=== PATIENT | female | born 1985 | race Caucasian/White ===

== ENCOUNTER → 2021-10-04 14:51 | Outpatient (BNVA) | payer MEDICARE, MEDICAID, SELFPAY | PROVIDERS: PCP Family Medicine Adult Medicine; Visit Provider Nurse Practitioner Family | DX: R56.9 Unspecified convulsions (principal); G43.909 Migraine, unspecified, not intractable, without status migrainosus; Z79.899 Other long term (current) drug therapy | CPT/HCPCS: 99212 ==

== ENCOUNTER → 2021-12-09 12:48 | Outpatient (BNVA) | payer MEDICARE, MEDICAID, SELFPAY | PROVIDERS: PCP Family Medicine Adult Medicine; Visit Provider Nurse Practitioner Family | DX: R56.9 Unspecified convulsions (principal); G43.009 Migraine without aura, not intractable, without status migrainosus; F41.1 Generalized anxiety disorder | CPT/HCPCS: 99212 ==

== ENCOUNTER → 2022-03-24 14:26 | Outpatient (BNVA) | payer MEDICARE, MEDICAID, SELFPAY | PROVIDERS: Visit Provider Nurse Practitioner Family | DX: R56.9 Unspecified convulsions (principal); G43.009 Migraine without aura, not intractable, without status migrainosus; F41.1 Generalized anxiety disorder | CPT/HCPCS: 99212 ==

== ENCOUNTER 2023-04-04 14:43 | Outpatient (AMB) | payer MEDICARE, MEDICAID, SELFPAY ==
--- NOTE | 2023-04-04 14:46 | A.OFFVIS_ITS ---
Intake Vital Signs 04/04/23 14:51 Height 5 ft Weight 138 lb BMI 26.9 BP 122/84 Blood Pressure Location Rt brachial Position Sitting Pulse 117 H Pulse Source Pulse Oximeter Pulse Oximetry (%) 99 Oxygen Delivery Method Room Air Intake Visit Reasons: F/u - CONF Intake Note: Patient presents for follow up. My silent seizure are still there,my full blown epileptic are more controlled and my migraines are worst and more often. Allergies No Known Allergies Allergy (Verified 04/04/23 14:53) Medication List - Last Reconciled 04/04/23 by JIMBO Sadler alprazolam 0.25 mg orally 1 tab 30 minutes prior to labs/medical appointments, may repeat x's 1; 30 days buspirone 5 mg PO BID citalopram 20 mg PO DAILY citalopram 10 mg PO DAILY clonazepam 0.5 mg PO DAILY fluticasone propionate 50 mcg/actuation 2 sprays intranasal DAILY gabapentin 300 mg PO BID loratadine 10 mg PO DAILY PRN magnesium oxide 400 mg PO DAILY 30 days metoclopramide HCl 5 mg PO Q4H PRN 90 days olanzapine 2.5 mg PO BEDTIME oxcarbazepine 300 mg PO QAM 30 days oxcarbazepine 600 mg PO BID 90 days riboflavin (vitamin B2) 400 mg PO DAILY 30 days rimegepant (Nurtec ODT) 75 mg PO Q OTHER DAY 32 days sumatriptan succinate 100 mg PO Q2H PRN 2 doses topiramate 25 - 50 mg (1 - 2 x 25 mg) PO BEDTIME 90 days HPI HPI Comments History of Present Illness Details 37-yr-old female presents for f/u visit. Pt denies any significant interval medical changes. Pt reports she is having spacing out seizures a/w mild shoulder/body jerking, w here she can hear what is going around her but cannot respond- this lasts seconds- and occur 5-6 x's per month. She has not had any full convulsive seizures- may feel that a seizure is coming on- however her friend/family can help her to relax and deep breathe, and is able to prevent it form becoming a full seizure. She is worried that her new watch has been showing elevated HR up to the 130s, e jordi when she is just sitting and inactive. She has had 2 a-fib notifications w/ HR in the 60s. Denies usual palpitations, chest pain, SOB, swelling. Sometimes may feel hot. She has been feeling more left lower occipital/neck pressure, which can move up/down the head. A/w photophobia, phonophobia, N/V, sometimes allodynia- touch can cause shooting pains, activity intolerance. Ice caps help. Sumatriptan helps only if she catches the DOYLE at the 1st sign. Topiramate 25mg qhs. Oxcarbazapine 600mg qam and 900mg qhs, Off of Gabapentin- did not feel it was very helpful. She has not had Nurtec ODT- is not being refilled. PFSH Medical History Depression Sleep difficulties Surgical History Hx of removal of cyst Family History Mother Diabetes Hypertension Thyroid disease Kidney disease Father COPD (chronic obstructive pulmonary disease) Social History Household Members: Family Household Members Other:: father, fiance Alcohol intake: current Alcohol intake frequency: holidays/special occasions only Patient Tobacco Use Status: Current everyday Tobacco user Substance Use Type: Marijuana Review of Systems Const All systems reviewed & are unremarkable except as noted in HPI and below Physical Exam Vital Signs: Last Vital Signs Pulse 117 H 04/04/23 14:51 BP 122/84 04/04/23 14:51 Pulse Ox 99 04/04/23 14:51 Oxygen Delivery Method Room Air 04/04/23 14:51 BMI result Body Mass Index 26.9 Const General: cooperative and no acute distress Orientation/consciousness: patient oriented x3 HEENT Head: Yes normocephalic Resp Effort & Inspection: normal respiratory effort and able to speak in complete sentences Neuro General: patient oriented x3, gait normal and CN's II-XI intact bilaterally Cognition (Neuro): normal cognition Motor exam (neuro): 5/5 motor strength present throughout Psych Appearance: grossly normal Mental Status: mental status grossly normal Speech and movement: Normal speech and movement present Affect: normal affect Attitude: cooperative Thought process: Normal thought process present Thought content: Normal thought content present Insight: Good insight present (Psych) Judgement: Good judgement present (Psych) Assessment & Plan Assessment & Plan (1) Tachycardia: Code(s): R00.0 - Tachycardia, unspecified (2) Atrial fib/flutter, transient: Code(s): I48.91 - Unspecified atrial fibrillation; I48.92 - Unspecified atrial flutter (3) Migraine without aura: Code(s): G43.009 - Migraine without aura, not intractable, without status migrainosus (4) Seizure: Code(s): R56.9 - Unspecified convulsions Plan Pt is advised to undergo 72 hr holter to assess episodes of resting tachycradia and heart rate monitor showing episodes of a-fib. For seiure: Continue Trileptal 600mg qam and 900mg qhs. Pt does not drive. ? For migraine: Resume Nurtec ODT 75mg qod for migraine prevention, as this has been very effective. Continue Topiramate 25mg qhs. Continue Riboflavin and Magnesium. Continue prn Sumatriptan. Continue prn Metoclopramide. Contraindications: Amitriptyline d/t seizure d/o. BBs d/t risk for hypotension ? f/u in 4 months or sooner prn new/worsening s/s Orders: Orders ECG 3 day holter monitor 04/04/23 I48.91 - Unspecified atrial fibrillation, I48.92 - Unspecified atrial flutter, R00.0 - Tachycardia, unspecified Medications: Changed From rimegepant (Nurtec ODT) 75 mg PO Q OTHER DAY 32 days 16 tabs 6RF for migraine prevention G43.009 - Migraine without aura, not intractable, without status migrainosus To rimegepant (Nurtec ODT) 75 mg PO Q OTHER DAY 30 days 15 tabs 6RF for migraine prevention G43.009 - Migraine without aura, not intractable, without status migrainosus From oxcarbazepine 300 mg PO QAM 30 days 30 tabs 3RF To oxcarbazepine 300 mg PO QAM 90 days 90 tabs 1RF From magnesium oxide 400 mg PO DAILY 30 days 30 tabs 4RF To magnesium oxide 400 mg PO DAILY 90 days 90 tabs 1RF Refilled sumatriptan succinate Max of 2 tablets per day or 4 tabs per week 100 mg PO Q2H PRN 12 tabs 6RF migraine headache oxcarbazepine 600 mg PO BID 90 days 180 tabs 1RF Coding Level of Care Code Est Pt Level 4 (29405) Diagnoses Tachycardia R00.0 Atrial fib/flutter, transient I48.91; I48.92 Migraine without aura G43.009 Seizure R56.9
[2023-04-04 14:51] VITALS: BP 122/84; PULSE 117; O2SAT 99; BMI 26.9
== END 2023-04-04 16:03 | disposition home or self-care (01) ==
PROVIDERS: Visit Provider Nurse Practitioner Family
DX: R00.0 Tachycardia, unspecified (principal); I48.91 Unspecified atrial fibrillation; I48.92 Unspecified atrial flutter; G43.009 Migraine without aura, not intractable, without status migrainosus; R56.9 Unspecified convulsions
CPT/HCPCS: 99214

== ENCOUNTER → 2023-04-04 14:43 | Outpatient (BNVA) | payer MEDICARE, MEDICAID, SELFPAY | PROVIDERS: Visit Provider Nurse Practitioner Family | DX: R00.0 Tachycardia, unspecified (principal); I48.91 Unspecified atrial fibrillation; I48.92 Unspecified atrial flutter; G43.009 Migraine without aura, not intractable, without status migrainosus; R56.9 Unspecified convulsions; Z79.899 Other long term (current) drug therapy | CPT/HCPCS: 99212 ==

== ENCOUNTER → 2023-04-17 14:16 | Outpatient (REF) | payer MEDICARE, MEDICAID, SELFPAY ==
--- NOTE | 2023-04-17 14:20 | HM_ITS ---
Conclusion: 1. Patient was monitored for total period of 2 days 2. Baseline was normal sinus rhythm with average heart rate of 82 beats per minute 3. No significant arrhythmias or pauses noted 4. Patient reported 10 events most of which were pounding heart correlating with sinus tachycardia MTDD
== END ==
LOC: HO.CARD 14:16
PROVIDERS: Visit Provider Nurse Practitioner Family
DX: R00.0 Tachycardia, unspecified (principal); I48.91 Unspecified atrial fibrillation; I48.92 Unspecified atrial flutter
CPT/HCPCS: 93242

== ENCOUNTER → 2023-04-17 14:20 | Outpatient (BNV) | payer MEDICARE, MEDICAID, SELFPAY | PROVIDERS: Visit Provider Internal Medicine Cardiovascular Disease | DX: R00.0 Tachycardia, unspecified (principal) | CPT/HCPCS: 93244 ==

== ENCOUNTER 2023-05-11 12:54 | Outpatient (AMB) | payer MEDICARE, MEDICAID, SELFPAY ==
[2023-05-11 12:56] VITALS: BP 120/80; PULSE 92; BMI 26.7
--- NOTE | 2023-05-11 12:56 | MHC.OFFVIS ---
Intake Vital Signs 05/11/23 12:56 Height 5 ft Weight 136 lb 10.986 oz BMI 26.7 BP 120/80 Blood Pressure Location Lt brachial Position Sitting Pulse 92 Intake Visit Reasons: APPLICATIONS SUPPORT SPECIALIST/ Carol Kennedy/tachycardia Intake Note: New patient dx tachycardia c/o high heart rate with little activity for the past few months watch said afib a few times had holter Cellophane Wrapping Examiner Required: No Corporate Quality Manager: Corporate Quality Manager Present Accompanied by: Significant Other Allergies No Known Allergies Allergy (Verified 04/04/23 14:53) Medication List - Last Reconciled 05/11/23 by Micheal Chiu MD alprazolam 0.25 mg orally 1 tab 30 minutes prior to labs/medical appointments, july repeat x's 1; 30 days buspirone 10 - 20 mg PO BID PRN citalopram 20 mg PO DAILY citalopram 10 mg PO DAILY clonazepam 0.5 mg PO DAILY fluticasone propionate 50 mcg/actuation 2 sprays intranasal DAILY loratadine 10 mg PO DAILY PRN magnesium oxide 400 mg PO DAILY 90 days metoclopramide HCl 5 mg PO Q4H PRN olanzapine 2.5 mg PO BEDTIME oxcarbazepine 300 mg PO QAM 90 days oxcarbazepine 1 tab qam and 1.5 tabs qhs orally .; 90 days rimegepant (Nurtec ODT) 75 mg PO Q OTHER DAY 30 days sumatriptan succinate 100 mg PO Q2H PRN 30 days topiramate 25 - 50 mg (1 - 2 x 25 mg) PO BEDTIME 90 days HPI HPI Comments History of Present Illness Details Lebron was referred to me for assessment and management of tachycardia. She has a pleasant 37-year-old female with prior mental health issues with PTSD, depression, anxiety disorder. She has on a lot of psychoactive medication prescribed by psychiatrist. Over the last few years she is gained some weight and she decided to she wants to start exercising so she bought herself a smart watch with heart monitor. Her she started noticing that this watch was telling her that heart rate was elevated especially when she would get up to do something in the morning leg get a cup of coffee. She then got concerned about this. Some of the episodes the watch told her that she might be in atrial fibrillation. She subsequently underwent a Holter monitor which actually shows average heart rate of 82 beats per minute throughout the monitoring which is within acceptable limits. However she had 10 reported events without any symptoms correlating with sinus tachycardia. There was no evidence of atrial fibrillation on the Holter monitor. Patient denies any symptoms related to it. Denies any lightheadedness, syncope. Denies any rapid palpitations. Denies any chest pain or shortness of breath. She does not drink a lot of water or use a lot of salt in her diet. She also has a lot of caffeine. She denies any other stimulant use or alcohol use. [facility] Medical History Sleep difficulties Depression Surgical History Hx of removal of cyst Family History Mother Diabetes Hypertension Thyroid disease Kidney disease Father COPD (chronic obstructive pulmonary disease) Social History Household Members: Family Household Members Other:: father, fiance Alcohol intake: current Alcohol intake frequency: holidays/special occasions only Patient Tobacco Use Status: Current everyday Tobacco user Substance Use Type: Marijuana Review of Systems Const Denies chills, Denies fatigue, Denies fever(s), Denies frequent falls, Denies weakness, Denies weight gain and Denies weight loss ENT Denies dizziness Card Denies chest pain, Denies leg edema, Denies lightheadedness, Denies palpitations, Denies dyspnea, Denies dyspnea on exertion, Denies orthopnea and Denies other (loss of consciousness) Resp Denies cough, Denies dyspnea and Denies dyspnea on exertion GI Denies hematochezia and Denies change in stool character Musc Denies abnormal gait, Denies muscle weakness, Denies numbness, Denies radiating pain into limb and Denies tingling Neuro Denies abnormal gait, Denies dizziness, Denies frequent falls, Denies numbness, Denies tingling and Denies weakness Endo Denies fatigue and Denies palpitations Physical Exam Vital Signs: Last Vital Signs Pulse 92 05/11/23 12:56 BP 120/80 05/11/23 12:56 BMI result Body Mass Index 26.7 Const General: cooperative, comfortable, no acute distress, alert, awake and anxious Nutritional Appearance: overweight Orientation/consciousness: patient oriented x3 Limitations: no limitations HEENT Head: Yes normocephalic and Yes atraumatic Neck Neck: Yes trachea midline, Yes supple and Yes no JVD Resp Effort & Inspection: normal respiratory effort Auscultation: clear to auscultation bilaterally and diminished lung sounds Cardio Jugular venous distension: no JVD Palpation: normal PMI Rate: regular rate Rhythm: regular rhythm Heart sounds: S1 normal heart sound present, S2 normal heart sound present, no click, no gallops, no murmurs and no rubs GI Auscultation: normal bowel sounds Skin General skin exam: no rashes or lesions noted Neuro General: patient oriented x3 and no focal motor deficits Extrem General: Yes no clubbing, cyanosis or edema Office Procedures EKG Details: EKG shows normal sinus rhythm with normal EKG with normal axis and normal intervals [id number], Complete Assessment & Plan Assessment & Plan (1) Sinus tachycardia seen on air sampling and monitoring: Code(s): R00.0 - Tachycardia, unspecified Plan: Patient with episodes of sinus tachycardia as detected by a watch and noted on the Holter monitor as well which appear to be more orthostatic in nature. This could be because of mild dysautonomia caused by her psychoactive medication which she requires for her mental health. She also has relative hypovolemia given that she has not a lot of oral fluid intake and lot of caffeine intake that might be contributing to her tachycardia. I have advised her to increase her water as well as salt intake. Various ways of doing this was discussed. Orthostatic precautions were discussed. If she persists with persistent elevated heart rate despite significantly increasing water and salt intake will proceed with head-up tilt-table testing. Nature of orthostatic tachycardia was discussed with her. No pharmacotherapy is recommended. I have advised if she is interested in investing in a smart phone based EKG device for her concern of atrial flutter/fibrillation although there is no clear evidence by Holter monitoring. She will think about it. Have advised her to decrease her stimulant use especially caffeine use. Eventually participating in regular aerobic activity will also improve her vagal tone and help with management of inappropriate sinus tachycardia. Will follow up in the clinic in 3 months time, sooner p.r.n.. Thank you for allowing me to partake in her care Orders: Orders CA echo transthoracic complete Today R00.0 - Tachycardia, unspecified Medications: Changed From metoclopramide HCl max 2 tabs per day 5 mg PO Q4H 90 days PRN 30 tabs 1RF migriane To metoclopramide HCl max 2 tabs per day 5 mg PO Q4H PRN migriane Coding Level of Care Code New Pt Level 3 (57522) Diagnoses Sinus tachycardia seen on air sampling and monitoring R00.0 CPT Codes EKG - CPT: 19139-[id number], Complete ([id number])
== END 2023-05-11 13:29 | disposition home or self-care (01) ==
PROVIDERS: Visit Provider Internal Medicine Cardiovascular Disease
DX: R00.0 Tachycardia, unspecified (principal)
CPT/HCPCS: 93010; 99213

== ENCOUNTER → 2023-05-11 12:54 | Outpatient (BNVA) | payer MEDICARE, MEDICAID, SELFPAY | PROVIDERS: Visit Provider Internal Medicine Cardiovascular Disease | DX: R00.0 Tachycardia, unspecified (principal) | CPT/HCPCS: 93005; 99212 ==

== ENCOUNTER → 2023-06-05 15:00 | Outpatient (REF) | payer MEDICARE, MEDICAID, SELFPAY ==
--- NOTE | 2023-06-05 15:02 | CA_ITS ---
Transthoracic Echocardiogram Patient (Last, First, Middle): Lebron Lobato, Gender: Female Date of : 1985 Age: 37 Procedure Date: 06/05/2023 Procedure Type: Transthoracic Echocardiogram Location: OP Height: 152.4 cm Weight: 62.14 kg BSA: 1.59 m2 Heart Rate: bpm BP: 110 / 70 mmHg Permaculture Designer: MANSI Referring MD: Micheal Chiu MD Stock Selector: Micheal Chiu MD Symptoms: R00.0 - Tachycardia, unspecified Study Quality: Adequate ECG Rhythm: Tachycardia Conclusions: - Normal study Findings Left Ventricle Normal left ventricular size, thickness, and systolic function. The visually estimated ejection fraction is between 60-65%. Diastolic function is normal for age. Peak GLS is -17.2%, borderline low. Right Ventricle Normal right ventricular cavity size and systolic function. Atria Both atria are normal in size. There is no evidence of interatrial shunt. Aortic Valve Normal aortic valve structure and function. There is no aortic valve stenosis. There is no aortic valve regurgitation. Mitral Valve Normal mitral valve structure and function. There is trace mitral valve regurgitation. There is no mitral valve stenosis. Pulmonic Valve The pulmonic valve is likely normal. Tricuspid Valve Normal tricuspid valve structure. There is trace tricuspid valve regurgitation. The right ventricular systolic pressure is normal. The right ventricular systolic pressure is 18 mmHg. Normal right atrial pressure. There is no evidence of pulmonary hypertension. Great Vessels All visible segments of the aorta are normal in size. The pulmonary artery was not well visualized. Venous The inferior vena cava is normal in size and collapses greater than 50% with inspiration. Pericardium/Pleural There is no evidence of pericardial effusion. Prior Study Comparison No prior study available for comparison. Measurements 2D Linear Measurements IVSd: 0.65 0.6-0.9/0.6-1.0 cm LVIDd: 4.75 3.9-5.3/4.2-5.9 cm LVIDd Index: 2.99 2.4-3.2/2.2-3.1 cm/m2 LVIDs: 2.83 2.0-3.6 cm LVPWd: 0.79 0.7-1.1 cm LA Diam: 2.60 2.7-3.8/3.0-4.0 cm LAIDs Index: 1.64 1.5-2.3 cm/m2 LV Mass: 135.20 67-162/88-224 g LV Mass Index: 85.03 43-95/49-115 g/m2 LVOT Diam: 2.00 3.0+(-)1.3 cm 2D Systolic Function EF 4C: 58.70 >55% EF 2C: 65.70 >55% EF BiP: 61.90 >55% Mitral Valve MV Pk E: 0.84 MV PK A: 0.93 MV Decel Time: 161.00 E/A: 0.90 E'Lateral: 13.10 E'Medial: 11.30 E/E' Med: 7.50 E/E' Lat: 6.40 PHT: 47.00 MVA PHT: 4.68 Decel Gonzales: 5.24 Aortic Valve AoV Pk Ritesh: 1.55 AoV Mn Ritesh: 1.09 AoV VTI: 0.31 AoV Pk Grad: 10.00 Aov Mn Grad: 5.00 MEREDITH Cont.VTI: 2.20 LVOT LVOT Pk Ritesh: 1.09 LVOT Mn Ritesh: 0.77 LVOT VTI: 0.21 LVOT Pk Grad: 5.00 LVOT Mn Grad: 3.00 LVOT Diam: 2.00 LVOT Area: 3.14 Diastolic Function MV Pk E: 0.84 MV Pk A: 0.93 E/A: 0.90 E'Medial: 11.30 E/E' Med: 7.50 E' Laterial: 13.10 E/E' Lat: 6.40 Right Ventricle TAPSE (mm): 23.60 TVS' Ritesh: 13.20 Tricuspid Valve TR Pk Ritesh: 1.96 TR Pk Grad: 15.00 RA Press: 3.00 RVSP: 18.00 Great Vessels Aorta Sinus of Valsalva: 2.90 2.0-3.5 cm Ao Asc: 2.80 2.1-3.4 cm Pulmonary Valve PV Pk Ritesh: 1.10 Peak PV Grad: 5.00 Updated in Other Vendor System with Status of Final Micheal Chiu MD electronically signed on 06/06/2023 12:45:14 PM with status of Final
== END ==
LOC: HO.CARD 15:00
PROVIDERS: Visit Provider Internal Medicine Cardiovascular Disease
DX: R00.0 Tachycardia, unspecified (principal)
CPT/HCPCS: 93306; 93356

== ENCOUNTER → 2023-06-05 15:02 | Outpatient (BNV) | payer MEDICARE, MEDICAID, SELFPAY | PROVIDERS: Visit Provider Internal Medicine Cardiovascular Disease | DX: R00.0 Tachycardia, unspecified (principal); I34.0 Nonrheumatic mitral (valve) insufficiency | CPT/HCPCS: 93306; 93356 ==

== ENCOUNTER 2023-08-01 14:34 | Outpatient (AMB) | payer MEDICARE, MEDICAID, SELFPAY ==
--- NOTE | 2023-08-01 15:24 | MHC.OFFVIS ---
Vital Signs 08/01/23 15:25 Height 5 ft Weight 143 lb BMI 27.9 BP 122/78 Blood Pressure Location Rt brachial Position Sitting Pulse 88 Pulse Source Pulse Oximeter Pulse Oximetry (%) 99 Oxygen Delivery Method Room Air Intake Visit Reasons: 4 mo f/u-LVM Intake Note: Patient has no issues for her seizures today. Allergies No Known Allergies Allergy (Verified 08/01/23 15:27) Medication List - Last Reconciled 08/01/23 by JIMBO Sadler alprazolam 0.25 mg orally 1 tab 30 minutes prior to labs/medical appointments, may repeat x's 1; 30 days buspirone 10 - 20 mg PO BID PRN citalopram 20 mg PO DAILY citalopram 10 mg PO DAILY clonazepam 0.5 mg PO DAILY fluticasone propionate 50 mcg/actuation 2 sprays intranasal DAILY loratadine 10 mg PO DAILY PRN magnesium oxide 400 mg PO DAILY 90 days metoclopramide HCl 5 mg PO Q4H PRN olanzapine 2.5 mg PO BEDTIME oxcarbazepine 1 tab qam and 1.5 tabs qhs orally .; 90 days oxcarbazepine 300 mg PO QAM 90 days rimegepant (Nurtec ODT) 75 mg PO Q OTHER DAY 30 days sumatriptan succinate 100 mg PO Q2H PRN 30 days topiramate 25 - 50 mg (1 - 2 x 25 mg) PO BEDTIME 90 days HPI Comments Details: 37-yr-old female presents for f/u visit, accompanied by her partner. Since last visit, pt had holter monitor which showed- 10 events most of which were pounding heart correlating with sinus tachycardia. Pt was thus referred to cardiology- who encouraged pt to increase salt and fluids. She tries to take increased fluids but notes it is hard to do. Today. she reports her smart watch is alerting her that her nocturnal heart rate can be be low- high 30s, 40s, 50s, 60s. She is worried to go to sleep. Does endorse snoring, excessive daytime sleepiness. She is also worried to start Vraylar that her psychiatrist suggested she try in place of Olanzapine- in hopes this would lessen her weight gain. Pt also notes she is planning to have an IVF consult to discuss family planning- would like our opinion on this. Pt reports she is having spacing out seizures a/w mild shoulder/body jerking, where she can hear what is going around her but cannot respond- this lasts seconds. per month. She has not had any full convulsive seizures. She states she has been taking Oxcarbazapine as 600+300mg (900mg) bid- for last few months. She is worried that her new watch has been showing elevated HR up to the 130s, even when she is just sitting and inactive. She has had 2 a-fib notifications w/ HR in the 60s. Denies usual palpitations, chest pain, SOB, swelling. Sometimes may feel hot. Pt report Nurtec ODT is much more effective than Sumatriptan for treating her acute migraine. She is having 4-5 breakthrough migraine days per month. Baseline headache characteristics: left lower occipital/neck pressure, which can move up/down the head. A/w photophobia, phonophobia, N/V, sometimes allodynia- touch can cause shooting pains, activity intolerance. Ice caps help. [facility] Medical History Sleep difficulties Depression Surgical History Hx of removal of cyst Family History Mother Diabetes Hypertension Thyroid disease Kidney disease Father COPD (chronic obstructive pulmonary disease) Social History Household Members: Family Household Members Other:: father, fiance Alcohol intake: current Alcohol intake frequency: holidays/special occasions only Patient Tobacco Use Status: Current everyday Tobacco user Substance Use Type: Marijuana Physical Exam Vital Signs: Last Vital Signs Pulse 88 08/01/23 15:25 BP 122/78 08/01/23 15:25 Pulse Ox 99 08/01/23 15:25 Oxygen Delivery Method Room Air 08/01/23 15:25 BMI result Body Mass Index 27.9 Const General: cooperative and no acute distress Orientation/consciousness: patient oriented x3 Resp Effort & Inspection: normal respiratory effort and able to speak in complete sentences Neuro General: patient oriented x3 Cranial nerves: Yes CN's II-XII intact bilaterally Cognition (Neuro): normal cognition Psych Appearance: grossly normal Mental Status: mental status grossly normal Speech and movement: Normal speech and movement present Affect: normal affect Attitude: cooperative Assessment & Plan Assessment & Plan (1) Snoring: Code(s): R06.83 - Snoring Category: Medical (2) Sleep difficulties: Code(s): G47.9 - Sleep disorder, unspecified Category: Medical (3) Excessive daytime sleepiness: Code(s): G47.19 - Other hypersomnia Category: Medical (4) Migraine without aura: Code(s): G43.009 - Migraine without aura, not intractable, without status migrainosus Category: Medical (5) Seizure: Code(s): R56.9 - Unspecified convulsions Category: Medical (6) GIA (generalized anxiety disorder): Code(s): F41.1 - Generalized anxiety disorder Category: Medical Plan Pt is advised to undergo HST to assess for sleep apnea, nocturnal bradycardia. 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 She is not ready to do labs today. Discussed that Oxcarbazepine can reduce serum sodium levels, which can cause CV and Neuro s/s- lightheadedness, heart rate changes, MS changes, etc. Pt advised to continue to increase fluids. Trial adding Thermotab- 1 tab bid. She may start Vraylar. Follow-up w/ cardiology as scheduled. For desire for : Discussed that seizure d/o does not preclude pt from becoming Once pt establishes care w/ IVF clinic, we should consider stopping Topiramate d/t risk for cleft lip. She would need a high lift operator consult as well. Start Folic acid 1mg qd. For seizure: May continue Trileptal 900mg BID. Pt does not drive. ? For migraine: Continue Nurtec ODT 75mg qod for migraine prevention, as pt has good clinical effect from use. Continue Topiramate 25mg qhs. Continue Riboflavin and Magnesium. Continue prn Sumatriptan. Continue prn Metoclopramide. Contraindications: Amitriptyline d/t seizure d/o. BBs d/t risk for hypotension ? f/u in 4 months or sooner prn new/worsening s/s Orders: Orders RT home sleep study Today G47.19 - Other hypersomnia, G47.9 - Sleep disorder, unspecified, R06.83 - Snoring Medications: New sod.chlorid-potassium chloride 287-180-15 mg (Thermotabs) 1 tab PO BID-TID PRN 30 tabs 3RF fatigue sod.chlorid-potassium chloride 287-180-15 mg (Thermotabs) 1 tab PO BID 30 days 60 tabs 3RF E87.1 - Hypo-osmolality and hyponatremia folic acid 1 mg PO DAILY 30 days 30 tabs 6RF Changed From oxcarbazepine 1 tab qam and 1.5 tabs qhs orally .; 90 days 225 tabs 1RF To oxcarbazepine 600 mg orally po bid (take w/ 300mg tab to total 900mg) 600 mg PO BID 90 days 180 tabs 1RF From oxcarbazepine 300 mg PO QAM 90 days 90 tabs 1RF To oxcarbazepine take w/ 600mg tab bid to total 900mg 300 mg PO BID 90 days 180 tabs 1RF Coding Level of Care Code Est Pt Level 4 (19106) Diagnoses Snoring R06.83 Sleep difficulties G47.9 Excessive daytime sleepiness G47.19 Migraine without aura G43.009 Seizure R56.9 GIA (generalized anxiety disorder) F41.1
[2023-08-01 15:25] VITALS: BP 122/78; PULSE 88; O2SAT 99; BMI 27.9
== END 2023-08-01 16:15 | disposition home or self-care (01) ==
PROVIDERS: Visit Provider Nurse Practitioner Family
DX: R06.83 Snoring (principal); G47.9 Sleep disorder, unspecified; G47.19 Other hypersomnia; G43.009 Migraine without aura, not intractable, without status migrainosus; R56.9 Unspecified convulsions; F41.1 Generalized anxiety disorder
CPT/HCPCS: 99214

== ENCOUNTER → 2023-08-01 14:34 | Outpatient (BNVA) | payer MEDICARE, MEDICAID, SELFPAY | PROVIDERS: Visit Provider Nurse Practitioner Family | DX: R56.9 Unspecified convulsions (principal); R06.83 Snoring; G47.9 Sleep disorder, unspecified; F41.1 Generalized anxiety disorder; G47.19 Other hypersomnia; G43.009 Migraine without aura, not intractable, without status migrainosus | CPT/HCPCS: 99212 ==

== ENCOUNTER 2023-08-14 13:24 | Outpatient (AMB) | payer MEDICARE, MEDICAID, SELFPAY ==
--- NOTE | 2023-08-14 13:47 | MHC.OFFVIS ---
Vital Signs 08/14/23 13:48 Height 5 ft Weight 143 lb 4.807 oz BMI 28.0 BP 110/64 Blood Pressure Location Lt brachial Position Sitting Pulse 92 Intake Visit Reasons: 3 mth fu after echo Intake Note: 3 month follow-up after echo has had hr in the 40's on watch when sleeping Waste Minimization Technician Required: No Allergies No Known Allergies Allergy (Verified 08/01/23 15:27) Medication List - Last Reconciled 08/14/23 by Micheal Chiu MD buspirone 10 - 20 mg PO BID PRN cariprazine (Vraylar) 1.5 mg PO DAILY clonazepam 0.5 mg PO DAILY fluticasone propionate 50 mcg/actuation 2 sprays intranasal DAILY folic acid 1 mg PO DAILY 30 days hydroxyzine HCl 25 mg PO BEDTIME loratadine 10 mg PO DAILY PRN magnesium oxide 400 mg PO DAILY 90 days olanzapine 2.5 mg PO BEDTIME oxcarbazepine 600 mg PO BID 90 days rimegepant (Nurtec ODT) 75 mg PO Q OTHER DAY 30 days sod.chlorid-potassium chloride 287-180-15 mg (Thermotabs) 1 tab PO BID 30 days sumatriptan succinate 100 mg PO Q2H PRN 30 days topiramate 25 - 50 mg (1 - 2 x 25 mg) PO BEDTIME 90 days HPI Comments Details: Lebron comes for follow-up because she noticed on her smart watch at nighttime heart rate slows down at 38 beats per minute. She said this is happening says shows switch to new medication Vaylar. She denies any lightheadedness, syncope. No palpitations. [facility] Medical History (Updated 08/01/23 @ 15:47 by JIMBO Sadler) Sleep difficulties Depression Surgical History Hx of removal of cyst Family History Mother Diabetes Hypertension Thyroid disease Kidney disease Father COPD (chronic obstructive pulmonary disease) Social History Household Members: Family Household Members Other:: father, fiance Alcohol intake: current Alcohol intake frequency: holidays/special occasions only Patient Tobacco Use Status: Current everyday Tobacco user Substance Use Type: Marijuana Review of Systems Const Denies chills, Denies fatigue, Denies fever(s), Denies frequent falls, Denies weakness, Denies weight gain and Denies weight loss ENT Denies dizziness Card Denies chest pain, Denies leg edema, Denies lightheadedness, Denies palpitations, Denies dyspnea, Denies dyspnea on exertion, Denies orthopnea and Denies other (loss of consciousness) Resp Denies cough, Denies dyspnea and Denies dyspnea on exertion GI Denies hematochezia and Denies change in stool character Musc Denies abnormal gait, Denies muscle weakness, Denies numbness, Denies radiating pain into limb and Denies tingling Neuro Denies abnormal gait, Denies dizziness, Denies frequent falls, Denies numbness, Denies tingling and Denies weakness Endo Denies fatigue and Denies palpitations Physical Exam Vital Signs: Last Vital Signs Pulse 92 08/14/23 13:48 BP 110/64 08/14/23 13:48 BMI result Body Mass Index 28.0 Const General: cooperative, comfortable, no acute distress, alert, awake and anxious Nutritional Appearance: overweight Orientation/consciousness: patient oriented x3 Limitations: no limitations HEENT Head: Yes normocephalic and Yes atraumatic Neck Neck: Yes trachea midline, Yes supple and Yes no JVD Resp Effort & Inspection: normal respiratory effort Auscultation: clear to auscultation bilaterally and diminished lung sounds Cardio Jugular venous distension: no JVD Palpation: normal PMI Rate: regular rate Rhythm: regular rhythm Heart sounds: S1 normal heart sound present, S2 normal heart sound present, no click, no gallops, no murmurs and no rubs GI Auscultation: normal bowel sounds Skin General skin exam: no rashes or lesions noted Neuro General: patient oriented x3 and no focal motor deficits Extrem General: Yes no clubbing, cyanosis or edema Assessment & Plan Assessment & Plan (1) Slow heart rate: Code(s): R00.1 - Bradycardia, unspecified Plan: Slow heart rate noted on smart watch could be artifactual. Will obtain Holter monitor. I did not see any association of Vaylar causing slow heart rate. Sleep apnea needs to be ruled out. No other cardiac workup is indicated. Will follow up if need be Orders: Orders ECG holter monitor 48 hour Today R00.1 - Bradycardia, unspecified Coding Level of Care Code Est Pt Level 3 (68006) Diagnoses Slow heart rate R00.1
[2023-08-14 13:48] VITALS: BP 110/64; PULSE 92; BMI 28.0
== END 2023-08-14 14:06 | disposition home or self-care (01) ==
PROVIDERS: Visit Provider Internal Medicine Cardiovascular Disease
DX: R00.1 Bradycardia, unspecified (principal)
CPT/HCPCS: 99213

== ENCOUNTER → 2023-08-14 13:24 | Outpatient (BNVA) | payer MEDICARE, MEDICAID, SELFPAY | PROVIDERS: Visit Provider Internal Medicine Cardiovascular Disease | DX: R00.1 Bradycardia, unspecified (principal) | CPT/HCPCS: 99212 ==

== ENCOUNTER → 2023-08-25 13:15 | Outpatient (REF) | payer MEDICARE, SELFPAY ==
--- NOTE | 2023-08-25 13:18 | HM_ITS ---
* Total monitoring time 2 days. * Underlying rhythm is sinus with an average rate of 79/Min. * Rare supraventricular ectopy. * Rare ventricular ectopy. * No significant pauses or AV blocks. * No patient markers or diary events. MTDD
== END ==
LOC: HO.CARD 13:15
PROVIDERS: Visit Provider Nurse Practitioner Family
DX: R00.1 Bradycardia, unspecified (principal)
CPT/HCPCS: 93225

== ENCOUNTER → 2023-08-25 13:18 | Outpatient (BNV) | payer MEDICARE, SELFPAY | PROVIDERS: Visit Provider Internal Medicine | DX: I47.10 Supraventricular tachycardia, unspecified (principal) | CPT/HCPCS: 93227 ==

== ENCOUNTER → 2023-09-04 14:48 | Outpatient (REF) | payer MEDICARE, SELFPAY | LOC: HO.SL 14:48 | PROVIDERS: Visit Provider Nurse Practitioner Family | DX: G47.19 Other hypersomnia (principal); G47.9 Sleep disorder, unspecified; R06.83 Snoring | CPT/HCPCS: 95806 ==

== ENCOUNTER → 2023-09-05 14:57 | Outpatient (BNV) | payer MEDICARE, SELFPAY | PROVIDERS: Visit Provider Psychiatry & Neurology Neurology | DX: R06.83 Snoring (principal) | CPT/HCPCS: 95806 ==

== ENCOUNTER 2024-02-19 14:51 | Outpatient (AMB) | payer MEDICARE, MEDICAID, SELFPAY ==
--- NOTE | 2024-02-19 15:04 | MHC.OFFVIS ---
Vital Signs 02/19/24 15:09 Height 5 ft Weight 128 lb 2 oz BMI 25.0 BP 110/88 Blood Pressure Location Rt brachial Position Sitting Pulse 86 Pulse Source Pulse Oximeter Pulse Oximetry (%) 98 Oxygen Delivery Method Room Air Intake Visit Reasons: 7 month f/u Intake Note: Patient presents for a 7 mo fu for seizures. Pt has no concerns. 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 Accompanied by: Significant Other Allergies No Known Allergies Allergy (Verified 02/19/24 15:09) Medication List - Last Reconciled 02/19/24 by JIMBO Sadler buspirone 10 - 20 mg PO BID PRN cariprazine (Vraylar) 1.5 mg PO DAILY clonazepam 0.5 mg PO DAILY fluticasone propionate 50 mcg/actuation 2 sprays intranasal DAILY folic acid 1 mg PO DAILY 30 days hydroxyzine HCl 25 mg PO BEDTIME loratadine 10 mg PO DAILY PRN magnesium oxide 400 mg PO DAILY 90 days olanzapine 2.5 mg PO BEDTIME oxcarbazepine 600 mg PO BID 90 days rimegepant (Nurtec ODT) 75 mg PO Q OTHER DAY 30 days sod.chlorid-potassium chloride 287-180-15 mg (Thermotabs) 1 tab PO BID 30 days sumatriptan succinate 100 mg PO Q2H PRN 30 days topiramate 25 - 50 mg (1 - 2 x 25 mg) PO BEDTIME 90 days HPI Comments Details: 38-yr-old female presents for f/u visit of seizure and migraine, accompanied by her partner. Since last visit, pt had cardiology workup, which was reassuring. Pt reports she is having occasional spacing out seizures a/w mild shoulder/body jerking, where she can hear what is going around her but cannot respond- this lasts seconds. She has not had any full convulsive seizures. She states she has been compliant with her oxcarbazepine order. She has not had labs done yet. She is working with her therapist, and a group DBT class to help with her mood and anxieties, which she feels are helping. She is having 6-7 breakthrough migraine days per month, which are overall less tense and less severe. Nurtec continues to be very effective. Sumatriptan is helpful if taken at the very 1st sign of headache Baseline headache characteristics: left lower occipital/neck pressure, which can move up/down the head. A/w photophobia, phonophobia, N/V, sometimes allodynia- touch can cause shooting pains, activity intolerance. Ice caps help. [facility] Medical History (Updated 08/01/23 @ 15:47 by JIMBO Sadler) Sleep difficulties Depression Surgical History Hx of removal of cyst Family History Mother Diabetes Hypertension Thyroid disease Kidney disease Father COPD (chronic obstructive pulmonary disease) Social History Household Members: Family Household Members Other:: father, fiance Alcohol intake: current Alcohol intake frequency: holidays/special occasions only Patient Tobacco Use Status: Current everyday Tobacco user Substance Use Type: Marijuana Physical Exam Vital Signs: Last Vital Signs Pulse 86 02/19/24 15:09 BP 110/88 02/19/24 15:09 Pulse Ox 98 02/19/24 15:09 Oxygen Delivery Method Room Air 02/19/24 15:09 BMI result Body Mass Index 25.0 Const General: cooperative and no acute distress Orientation/consciousness: patient oriented x3 Resp Effort & Inspection: normal respiratory effort and able to speak in complete sentences Neuro General: patient oriented x3 Cranial nerves: Yes CN's II-XII intact bilaterally Cognition (Neuro): normal cognition Psych Appearance: grossly normal Mental Status: mental status grossly normal Speech and movement: Normal speech and movement present Affect: normal affect Attitude: cooperative Assessment & Plan Assessment & Plan (1) Seizure: Code(s): R56.9 - Unspecified convulsions Category: Medical (2) Migraine without aura: Code(s): G43.009 - Migraine without aura, not intractable, without status migrainosus Category: Medical (3) GIA (generalized anxiety disorder): Code(s): F41.1 - Generalized anxiety disorder Category: Medical (4) Sleep difficulties: Code(s): G47.9 - Sleep disorder, unspecified Category: Medical Plan Reviewed 09/05/2023 HST- no evidence for sleep apnea, nocturnal bradycardia. For desire for : Seizure d/o does not preclude pt from becoming Once pt establishes care w/ IVF clinic, we should consider stopping Topiramate d/t risk for cleft lip. She would need a highway maintenance supervisor consult as well. Continue Folic acid 1mg qd. For seizure: May continue Trileptal 900mg BID. 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 She is not ready to do labs today. Patient is working with her therapist on reducing her needle phobia. Pt does not drive. ? For migraine: Continue Nurtec ODT 75mg qod for migraine prevention, as pt has good clinical effect from use. Continue Topiramate 25mg qhs. Continue Riboflavin and Magnesium. Continue prn Sumatriptan. Continue prn Metoclopramide. Contraindications: Amitriptyline d/t seizure d/o. BBs d/t risk for hypotension ? f/u in 6 months or sooner prn new/worsening s/s Medications: Changed From oxcarbazepine take w/ 600mg tab bid to total 900mg 300 mg PO BID 180 tabs 1RF 90 days To oxcarbazepine take w/ 600mg tab bid to total 900mg bid 300 mg PO BID 90 days 180 tabs 1RF Refilled oxcarbazepine 600 mg orally po bid (take w/ 300mg tab to total 900mg) 600 mg PO BID 90 days 180 tabs 1RF Coding Level of Care Code Est Pt Level 4 (38732) Diagnoses Seizure R56.9 Migraine without aura G43.009 GIA (generalized anxiety disorder) F41.1 Sleep difficulties G47.9
[2024-02-19 15:09] VITALS: BP 110/88; PULSE 86; O2SAT 98; BMI 25.0
== END 2024-02-19 15:50 | disposition home or self-care (01) ==
PROVIDERS: Visit Provider Nurse Practitioner Family
DX: R56.9 Unspecified convulsions (principal); G43.009 Migraine without aura, not intractable, without status migrainosus; F41.1 Generalized anxiety disorder; G47.9 Sleep disorder, unspecified
CPT/HCPCS: 99214

== ENCOUNTER → 2024-02-19 14:51 | Outpatient (BNVA) | payer MEDICARE, MEDICAID, SELFPAY | PROVIDERS: Visit Provider Nurse Practitioner Family | DX: G43.009 Migraine without aura, not intractable, without status migrainosus (principal); G47.9 Sleep disorder, unspecified; R56.9 Unspecified convulsions; F41.1 Generalized anxiety disorder | CPT/HCPCS: 99212 ==

== ENCOUNTER 2024-09-16 14:25 | Outpatient (AMB) | payer MEDICARE, MEDICAID, SELFPAY ==
--- NOTE | 2024-09-16 14:24 | MHC.OFFVIS ---
Vital Signs 09/16/24 14:26 Height 5 ft Weight 128 lb 2 oz BMI 25.0 BP 108/80 Blood Pressure Location Lt brachial Position Sitting Pulse 115 H Pulse Source Pulse Oximeter Pulse Oximetry (%) 99 Oxygen Delivery Method Room Air Intake Visit Reasons: Follow up Intake Note: Patient presents to the office today for a follow up migraine/seizure. Allergies No Known Allergies Allergy (Verified 09/16/24 14:28) Medication List - Last Reconciled 09/16/24 by JIMBO Sadler buspirone 10 - 20 mg PO BID PRN cariprazine (Vraylar) 4.5 mg PO DAILY clonazepam 0.5 mg PO DAILY fluticasone propionate 50 mcg/actuation 2 sprays intranasal DAILY folic acid 1 mg PO DAILY 30 days loratadine 10 mg PO DAILY PRN magnesium oxide 400 mg PO DAILY 90 days olanzapine 2.5 mg PO BEDTIME oxcarbazepine 900 mg (1.5 x 600 mg) PO BID 90 days rimegepant (Nurtec ODT) 75 mg PO Q OTHER DAY 30 days sod.chlorid-potassium chloride 287-180-15 mg (Thermotabs) 1 tab PO BID 30 days sumatriptan succinate 100 mg PO Q2H PRN 30 days topiramate 25 - 50 mg (1 - 2 x 25 mg) PO BEDTIME 90 days trazodone 50 mg PO BEDTIME PRN HPI Comments Details: History of Present Illness The patient is a 38-year-old female presenting with seizure disorder and migraine. The patient reports not having experienced a major phobic seizure in approximately one and a half months, although minor silent seizures continue to occur. She has been working on managing stress due to several recent family and pet losses. For migraines, the patient experiences attacks a few times a week. An ice mask to help alleviate the pain. The headaches cause significant discomfort, leading to crying and the need for different pain management strategies. Previous trials with sumatriptan and Nurtec showed positive effects, but inconsistencies in refilling prescriptions have caused her to rely on [id number] analgesics recently. Baseline headache characteristics: left lower occipital/neck pressure, which can move up/down the head. A/w photophobia, phonophobia, N/V, sometimes allodynia- touch can cause shooting pains, activity intolerance.Ice caps help. Medications: - Oxcarbazepine 600 mg, seizure management - Motrin and Tylenol, used for migraine management - Sumatriptan, used previously for migraine attacks - Nurtec, used previously for migraine prevention - Magnesium and B2, previously taken for migraine prevention - Trazodone 50 mg, for sleep management - Vraylar increased to 4.5 for mood management Social History: - Reports stress related to the recent loss of family members and pets - Expressed desire for but does not actively attempt conception Review of Systems - Neurologic: Reports silent seizures; denies major seizures recently - Musculoskeletal: Denies changes - Cardiovascular: Reports lightheadedness when standing - Psychiatric: Reports experiencing manic episodes PFSH Medical History Sleep difficulties Depression Surgical History Hx of removal of cyst Family History Mother Diabetes Hypertension Thyroid disease Kidney disease Father COPD (chronic obstructive pulmonary disease) Social History Household Members: Family Household Members Other:: father, fiance Alcohol intake: current Alcohol intake frequency: holidays/special occasions only Patient Tobacco Use Status: Current everyday Tobacco user Substance Use Type: Marijuana Physical Exam Vital Signs: Last Vital Signs Pulse 115 H 09/16/24 14:26 BP 108/80 09/16/24 14:26 Pulse Ox 99 09/16/24 14:26 Oxygen Delivery Method Room Air 09/16/24 14:26 BMI result Body Mass Index 25.0 Const General: cooperative and no acute distress Orientation/consciousness: patient oriented x3 Resp Effort & Inspection: normal respiratory effort and able to speak in complete sentences Neuro General: patient oriented x3 Cranial nerves: Yes CN's II-XII intact bilaterally Cognition (Neuro): normal cognition Psych Appearance: grossly normal Mental Status: mental status grossly normal Speech and movement: Normal speech and movement present Affect: normal affect Attitude: cooperative Assessment & Plan Assessment & Plan (1) Seizure: Code(s): R56.9 - Unspecified convulsions Category: Medical (2) Migraine without aura: Code(s): G43.009 - Migraine without aura, not intractable, without status migrainosus Category: Medical (3) GIA (generalized anxiety disorder): Code(s): F41.1 - Generalized anxiety disorder Category: Medical (4) Sleep difficulties: Code(s): G47.9 - Sleep disorder, unspecified Category: Medical Plan Discussion Notes During the visit, we discussed the management of her seizure disorder and migraine issues. The patient agreed to transition her oxcarbazepine dosing to a single dose to simplify the process. We reviewed her current issues with medication management, especially concerning pharmacy transitions, and she will now receive her prescriptions from [facility] on [address]. We also discussed the effects of increased ambient temperatures on medication needs due to sodium levels and orthostatic lightheadedness. The patient was advised to use salt additives or electrolyte drinks as an interim measure while awaiting Thermotabs. Nurtec was well-received in the past, so I will refill that for her, along with sumatriptan. I discussed altering her topiramate regimen in case of , emphasizing the importance of managing safe levels of anti-seizure medication for gestational purposes. I encouraged her to continue following up with her psychiatrist regarding mood stability and medication adjustments. Plan and patient instructions: Patient was informed and verbally consented to the use of an ambient scribe for clinic note documentation during this visit. 09/05/2023 HST- no evidence for sleep apnea, nocturnal bradycardia. For desire for : Seizure d/o does not preclude pt from becoming Once pt establishes care w/ IVF clinic, we should consider stopping Topiramate d/t risk for cleft lip. She would need a highway maintenance crew worker consult as well. Resume Folic acid 1mg qd. Discussed the implications of on seizure management and potential dose adjustments if conception occurs. For seizure: Continue oxcarbazepine with adjusted dosing to improve management compliance. Oxcarbazepine 600 mg tab, 1.5 tabs (900 mg) twice a day. Evaluate sodium intake and manage potential hyponatremia due to elevated temperatures and possible oxcarbazepine side effects. Advise the consumption of Gatorade or Powerade as electrolyte substitutes if Thermotabs are unavailable. 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 She is not ready to do labs today. Patient is working with her therapist on reducing her needle phobia. Pt does not drive. ? For migraine: Resume Nurtec ODT 75mg qod for migraine prevention, as pt has good clinical effect from use. Resume Topiramate 25-50mg qhs. Resume Riboflavin and Magnesium. Resume prn Sumatriptan. Continue prn Metoclopramide. Contraindications: Amitriptyline d/t seizure d/o. BBs d/t risk for hypotension ? f/u in 6 months or sooner prn new/worsening s/s Medications: New riboflavin (vitamin B2) 400 mg PO DAILY 90 tabs 3RF 90 days riboflavin (vitamin B2) 400 mg PO DAILY 30 days 30 tabs 6RF Changed From oxcarbazepine 600 mg orally po bid (take w/ 300mg tab to total 900mg) 600 mg PO BID 90 days 180 tabs 1RF To oxcarbazepine 900 mg (1.5 x 600 mg) PO BID 270 tabs 1RF 90 days Refilled magnesium oxide 400 mg PO DAILY 90 tabs 3RF 90 days folic acid 1 mg PO DAILY 30 tabs 6RF 30 days sumatriptan succinate Max of 2 tablets per day or 4 tabs per week 100 mg PO Q2H PRN 12 tabs 6RF migraine headache 30 days [facility] 75 mg PO Q OTHER DAY 15 tabs 6RF for migraine prevention 30 days G43.009 - Migraine without aura, not intractable, without status migrainosus sod.chlorid-potassium chloride 287-180-15 mg (Thermotabs) 1 tab PO BID 60 tabs 3RF 30 days E87.1 - Hypo-osmolality and hyponatremia topiramate 25 - 50 mg (1 - 2 x 25 mg) PO BEDTIME 180 tabs 3RF 90 days Discontinued oxcarbazepine take w/ 600mg tab bid to total 900mg bid Discontinued Reason: Ancillary Entered New Order 300 mg PO BID 90 days 180 tabs 1RF Coding Level of Care Code Est Pt Level 4 (32745) Diagnoses Seizure R56.9 Migraine without aura G43.009 GIA (generalized anxiety disorder) F41.1 Sleep difficulties G47.9
[2024-09-16 14:26] VITALS: BP 108/80; PULSE 115; O2SAT 99; BMI 25.0
--- OUTSIDE RECORDS SUMMARY | 2024-09-16 15:47 | XMS_ITS | Clinical Summary ---
Author Organization [address] Address [address] [place] [phone] Phone Care Team Providers Care Printer Floor Covering Assistant Name Role Phone Melvi Piper MD Primary Care Provider [phone] Allergies No known active allergies Medications loratadine (CLARITIN) 10 mg tablet TAKE 1 TABLET BY MOUTH DAILY. NEEDED FOR HIVES/RASH 4 Active SUMAtriptan (IMITREX) 100 mg tablet TAKE 1 TABLET BY MOUTH EVERY 2 HOURS FOR 2 DOSES NEEDED FOR MIGRAINE HEADACHE. MAX OF 2 TABLETS DAILY OR 4 TABLET EVERY WEEK 3 Active OLANZapine (ZyPREXA) 2.5 mg tablet Take 1 tablet (2.5 mg total) by mouth 1 (one) time each day. 3 Active clonazePAM (KlonoPIN) 1 mg tablet Take 0.5 Tablets by mouth daily as needed for Anxiety. Psychiatry prescribes 1 Active citalopram hydrobromide (CITALOPRAM ORAL) Patient now is taking 10mg Active topiramate (TOPAMAX) 25 mg tablet Take 25 mg by mouth 2 times daily. neurologist Active OXcarbazepine (TRILEPTAL) 300 mg tablet Take 300 mg by mouth 2 times daily. Active OXcarbazepine (TRILEPTAL) 600 mg tablet Take 1 tablet (600 mg total) by mouth 2 (two) times a day. 5 Active Vraylar 3 mg capsule Take 1 capsule (3 mg total) by mouth 1 (one) time each day. 5 Active hydrOXYzine HCL (ATARAX) 25 mg tablet Take 1 tablet (25 mg total) by mouth 1 (one) time. 5 Active sulfamethoxazole -trimethoprim (BACTRIM DS,SEPTRA DS) 800-160 mg per tablet Take 1 tablet by mouth 2 (two) times a day. Active fluticasone propionate (FLONASE) 50 mcg/actuation nasal spray SPRAY 2 SPRAYS INTO EACH NOSTRIL EVERY DAY SHAKE GENTLY. CLEAN TIP AND REPLACE CAP AFTER USE. 48 mL 1 5 Active Active Problems Problem Noted Date Diagnosed Date Bacterial skin infection 03/13/2023 Overview (12/28/2023): Last Assessment & Plan: I counseled Lebron that this appears most c/w staph skin infection. I recommended Bactrim BID x 10 days given her sensitivity to PCN. I recommended she throw away her razor and avoid shaving in the future. Likely the source. She will apply Aquaphor to protect and comfort the skin. Encouraged thorough hand washing. Trim in the future, but not until healed. She agreed. Return if not resolving in the next 1-2 weeks. ASCUS with positive high risk HPV cervical 11/30 Overview (12/28/2023): Pap smear 2011 - [facility] Pap smear 2014 - Negative Pap smear 10/19/16 ASCUS, positive HPV Colposcopy with biopsy 11/30/16- NEGATIVE Pap 12/22/17 - ASCUS, positive HPV Colpo 03/15/18 - biopsy negative, ECC negative Marijuana use 04/20/2015 Smoking 05/09/2013 Phalanx, hand fracture, open 03/31/2011 Anxiety 07/13/2010 Migraine 07/13/2010 Seizure disorder ([facility] V24, [facility] V28) 08/04 Overview (12/28/2023): Dr. hima ramirez 09/08/2008 Surgical History Surgery Date Site/Laterality Comments OTHER SURGICAL HISTORY PROCEDURE: DENIES PREVIOUS SURGERY Medical History Medical History Date Comments Anxiety and depression DX:Anxiet y and depression; COMMENT: Followed by psychiatrist in [place] Seizure disorder ([facility] V2 4, [facility] V28) DX:Seizure disorder ([facility]); C OMMENT: neurologist Dr. Nataliia Chirinos Other specified personal his tory presenting hazards to health(V15.89) 2011 DX:Other specifie d personal history presenting hazards to health(V15.89); COMMENT: ANDREI I with HPV changes Family History Medical History Relation Name Comments Other cancer Other 1 aunt ? leukemia Cervical cancer Other 2 cousin at 18 Heart attack Other 3 grandparents Stroke Other 4 grandparents Other cancer Paternal Grandfather prostat e ca 60-62 Relation Name Status Comments Father Alive healthy Mother Alive bladder inconti nence, htn, dm Other 1 Other 2 Other 3 Other 4 Other 5 Paternal Grandfather Social History Tobacco Use Types Packs/Day Years Used Date Smoking Tobacco: Every Day Cigarettes Smokeless Tobacco: Never Alcohol Use Standard Drinks/Week Comments No 0 (1 standard drink = 0.6 oz pur e alcohol) Comments Unknown Sex and Gender Information Value Date Recorded Sex Assigned at Not on file Legal Sex Female 3:52 PM EST Gender Identity Not on file Sexual Orientation Not on file Obstetrics History Last Filed Vital Signs Vital Sign Reading Time Taken Comments Blood Pressure 104/74 05/21/2024 1:22 PM EDT Pulse 92 05/21/2024 1:22 PM EDT Temperature 36.3 C (97.4 F) 05/21/2024 1:22 PM EDT Respiratory Rate 18 05/21/2024 1:22 PM EDT Oxygen Saturation 99% 05/21/2024 1:22 PM EDT Inhaled Oxygen Concentration - - Weight 61 kg (134 lb 6.4 oz) 05/21/2024 1:22 PM EDT Height 152.4 cm (5') 05/21/2024 1:22 PM EDT Body Mass Index 26.25 05/21/2024 1:22 PM EDT Plan of Treatment Health Maintenance Due Date Last Done Comments DTaP,Tdap,and Td Vaccines (1 - Tdap) 2005 Hepatitis B Vaccines (1 of 3 - 19+ 3-dose series) 2005 Pneumococcal Vaccine: Pediat rics (0 to 5 Years) and At-Risk Patients (6 to 49 Years) (1 of 2 - PCV) 2005 HIV Screening 02/02/2022 Hepatitis C Screening 02/02/2022 Medicare Annual Wellness Visit 02/02/2022 Social Influencers of Health Screening 02/02/2022 COVID-19 Vaccine (1 - 2023-2 5 season) 2023 Depression Screening 03/17/2024 03/17/2023 Influenza Vaccine (#1) 2024 Cervical Cancer Screening: HPV 06/28/2028 06/29/2023 HIB Vaccines Aged Out No longer eligi ble based on patient's age to complete this topic HPV Vaccines Aged Out No longer eligi ble based on patient's age to complete this topic Hepatitis A Vaccines Aged Out No long er eligible based on patient's age to complete this topic IPV Vaccines Aged Out No longer eligi ble based on patient's age to complete this topic MMR Vaccines Aged Out No longer eligi ble based on patient's age to complete this topic Meningococcal ACWY Vaccine Aged Out N o longer eligible based on patient's age to complete this topic Meningococcal B Vaccine Aged Out No l onger eligible based on patient's age to complete this topic RSV Immunization Patients Un fady 20 months Aged Out No longer eligible b ased on patient's age to complete this topic Varicella Vaccines Aged Out No longer eligible based on patient's age to complete this topic Procedures Procedure Name Priority Date/Time Associated Diagnosis Comments HPV Routine 06/29/2023 DEPRESSION SCREENING Routine 03/17/2023 from Last 3 Months or Most Recently Relevant to Health Maintenance Results * Cervical Cancer Screening: HPV (06/29/2023) Pathologist [facility] Cervical Cancer Screening: HPV negative, abstracted Historical Provider HEALTH MAINTENANCE Final Result * Depression Screening (03/17/2023) Pathologist [facility] Depression Screening abstracted Historical Provider HEALTH MAINTENANCE Final Result from Last 3 Months or Most Recently Relevant to Health Maintenance Insurance [place]ICA[place] - [place] [employer] MED[employer]ARE [employer]VANTAGE Care Teams Printer Floor Covering Assistant Relationship Specialty Start Date End Date Melvi Piper MD [address] [place] [phone] PCP - General Internal Medicine 05/21/24
--- OUTSIDE RECORDS SUMMARY | 2024-09-16 15:47 | XMS_ITS | Encounter Summary ---
Author Organization [facility] Address [address] [place] [address] Care Team Providers Care Copper Etcher Name Role Phone Aleah Dozier MD Primary Care Provider Angy Montes MD Primary Care Provide r Unavailable Luiz Khan MD Primary Care Provider Unavail able Shira Torres MD Primary Care Provider Unavailab Aleah Castillo MD Primary Care Provider Melvi Boykin MD Primary Care Provider [phone] Encounter Details Date Type Department Care Team Description 08/10/2009 Printed Circuit Board Preassembler Report Medical Records [address] [place] [id number] Sunshine Morataya MD Social History Tobacco Use Types Packs/Day Years Used Date Smoking Tobacco: Every Day Cigarettes 0.5 Alcohol Use Standard Drinks/Week Comments No 0 (1 standard drink = 0.6 oz pur e alcohol) Sex Assigned at Date Recorded Not on file Job Start Date Occupation Industry Not on file Not on file Not on file documented as of this encounter Plan of Treatment Not on file documented as of this encounter Visit Diagnoses Not on filedocumented in this encounter Care Teams Copper Etcher Relationship Specialty Start Date End Date Aleah Dozier MD PCP - General 06/09/08 01/18/11 Angy Montalvo MD PCP - General Internal Medicine 01/19/11 Luiz Khan MD PCP - General Internal Medicine 09/14/11 06/18/20 Shira Torres MD PCP - General Internal Medicine 06/19/20 12/21/20 Aleah Dozier MD PCP - General Internal Medicine 12/22/20 09/04/22 Melvi Piper MD [address] [place] [id number] PCP - General Internal Medicine 09/05/22 documented as of this encounter
== END 2024-09-16 15:18 | disposition home or self-care (01) ==
LOC: HO.HSMS 14:26
PROVIDERS: Visit Provider Nurse Practitioner Family
DX: R56.9 Unspecified convulsions (principal); G43.009 Migraine without aura, not intractable, without status migrainosus; F41.1 Generalized anxiety disorder; G47.9 Sleep disorder, unspecified
CPT/HCPCS: 99214

== ENCOUNTER → 2024-09-16 14:25 | Outpatient (BNVA) | payer MEDICARE, MEDICAID, SELFPAY | PROVIDERS: Visit Provider Nurse Practitioner Family | DX: F41.1 Generalized anxiety disorder (principal); G47.9 Sleep disorder, unspecified; G43.009 Migraine without aura, not intractable, without status migrainosus; R56.9 Unspecified convulsions | CPT/HCPCS: 99212 ==